=== PATIENT | male | born 1955 | race African-American/Black ===

== ENCOUNTER 2020-07-14 11:13 | Inpatient (IN) | payer OTHER ==
[2020-07-14 12:04] VITALS: BMI 28.2
[2020-07-14] MEDS ORDERED: ALBUTEROL SO4 HFA INHALER IH PRN (12:25)
[2020-07-14] MEDS ORDERED: BISMUTH SUBSALICYLATE 262 MG/15 ML BTL PO PRN (12:26)
[2020-07-14] MEDS ORDERED: ACETAMINOPHEN 325 MG TABLET (FP) PO PRN ×2 (12:26)
[2020-07-14] MEDS ORDERED: MAG HYDROX/AL HYDROX/SIMETH 30 ML UNIT-DOSE CUP PO PRN (12:26)
[2020-07-14] MEDS ORDERED: MAGNESIUM CITRATE 300 ML BOTTLE PO PRN (12:26)
[2020-07-14] MEDS ORDERED: ONDANSETRON *ODT* 4 MG TABLET SL PRN (12:26)
[2020-07-14] MEDS ORDERED: MAGNESIUM HYDROX 2400MG/30ML ORAL SUSPENSION 30 ML CUP PO PRN (12:26)
[2020-07-14] MEDS ORDERED: IBUPROFEN 400 MG TABLET (FP) PO PRN (12:26)
[2020-07-14] MEDS ORDERED: MENTHOL/PHENOL 1 EACH UD MM PRN (12:26)
[2020-07-14] MEDS ORDERED: cloNIDine HCL 0.1 MG TABLET PO PRN (12:26)
[2020-07-14] MEDS ORDERED: METHADONE HCL 10 MG TABLET (FOR DETOX USE ONLY) PO ONE (12:26)
[2020-07-14] MEDS ORDERED: METHOCARBAMOL 500 MG TABLET PO PRN (12:26)
[2020-07-14] MEDS: NICOTINE POLACRILEX 2 MG GUM BUC PRN ×2 (14:00→17:03)
[2020-07-14] MEDS: PRENATAL VITAMINS W/ FOLIC ACID TABLET (FP) PO SCH (14:01)
[2020-07-14] MEDS: hydrOXYzine PAMOATE 25 MG CAPSULE (FP) PO SCH ×3 (14:01→22:26)
[2020-07-14] MEDS: NICOTINE 21 MG/24 HOURS TOPICAL PATCH TD SCH (14:02)
[2020-07-14 14:55] LABS: BLOOD UREA NITROGEN 18.6 mg/dL (7-18)
[2020-07-14 14:58] LABS: CREATININE 1.5 mg/dL (0.55-1.3)
[2020-07-14 14:59] LABS: BILIRUBIN,TOTAL 0.5 mg/dL (0.2-1); TOT PROT 7.4 g/dl (6.4-8.2)
[2020-07-14] MEDS ORDERED: THIAMINE HCL 100 MG TABLET (FP) PO SCH (22:00)
[2020-07-14] MEDS ORDERED: MELATONIN 5 MG TABLETS PO SCH (22:00)
[2020-07-15] MEDS: hydrOXYzine PAMOATE 25 MG CAPSULE (FP) PO SCH ×2 (05:45→09:18)
[2020-07-15] MEDS: NICOTINE POLACRILEX 2 MG GUM BUC PRN (07:09)
[2020-07-15 08:46] VITALS: BP 136/82; PULSE 71; TEMP 96.6
[2020-07-15] MEDS ORDERED: METHADONE HCL 5 MG TABLET (FOR DETOX USE ONLY) ONE (09:06)
[2020-07-15] MEDS ORDERED: METHADONE HCL 10 MG TABLET (FOR DETOX USE ONLY) ONE (09:06)
[2020-07-15] MEDS: NICOTINE 21 MG/24 HOURS TOPICAL PATCH TD SCH (09:17)
[2020-07-15] MEDS: PRENATAL VITAMINS W/ FOLIC ACID TABLET (FP) PO SCH (09:18)
[2020-07-15] MEDS ORDERED: METHADONE (DETOX) 20 MG, METHADONE (DETOX) 5 MG PO ONE (10:00)
[2020-07-15 10:17] LABS: BASO % 0.9 % (0-2.0); EOS % 3.9 % (0-4.5); HEMATOCRIT 44.1 % (35.4-49); HEMOGLOBIN 14.6 GM/dL (11.7-16.9); LYMPH % 31.8 % (8-40); MCH 33.6 pg (25.7-33.7); MCHC 33.2 g/dl (32.0-35.9); MEAN CELL VOLUME 101.1 fl (80-96); MEAN PLT VOLUME 8.9 fl (7.5-11.1); MONO % 7.9 % (3.8-10.2); NEUT % 55.5 % (42.8-82.8); PLATELET COUNT 205 K/MM3 (134-434); RBC 4.36 M/mm3 (4.00-5.60); RDW 14.1 % (11.9-15.9); WHITE BLOOD COUNT 5.6 K/mm3 (4.0-10.0)
[2020-07-16] MEDS ORDERED: METHADONE HCL 10 MG TABLET (FOR DETOX USE ONLY) PO ONE (10:00)
[2020-07-17] MEDS ORDERED: METHADONE (DETOX) 10 MG, METHADONE (DETOX) 5 MG PO ONE (10:00)
[2020-07-18] MEDS ORDERED: METHADONE HCL 10 MG TABLET (FOR DETOX USE ONLY) PO ONE (10:00)
[2020-07-19] MEDS ORDERED: METHADONE HCL 5 MG TABLET (FOR DETOX USE ONLY) PO ONE (06:00)
== END 2020-07-15 11:59 | disposition left against medical advice (07) | DRG 894 ==
LOC: YASAS 11:13 → Y3N 12:21
PROVIDERS: ADMIT Allergy & Immunology; ATTEND Allergy & Immunology
PROC: HZ2ZZZZ Detoxification Services for Substance Abuse Treatment (ICD-10-PCS; principal; 2020-07-14)
DX: F11.23 Opioid dependence with withdrawal (principal); F10.20 Alcohol dependence, uncomplicated; F17.210 Nicotine dependence, cigarettes, uncomplicated; F41.8 Other specified anxiety disorders; F32.9 Major depressive disorder, single episode, unspecified; I10 Essential (primary) hypertension; M54.5 Low back pain; G89.29 Other chronic pain; I25.2 Old myocardial infarction; Z87.81 Personal history of (healed) traumatic fracture
CPT/HCPCS: 36415; 80053; 85025; 86780; 93005; 93010; C9803; U0003; U0005